=== PATIENT | female | born 1940 | race Caucasian/White ===

== ENCOUNTER 2025-07-30 03:57 | Emergency (ER) | payer MEDICARE, BC ==
[~2025-07-30] VITALS: Ht 162.6 cm; Wt 86.4 kg
[~2025-07-30 03:57] MED LIST: ASCO500C18 PO; ATOR40TA71 PO; BEETROOT PO; ERGO125018 PO; KRIL1CAP6 PO; LEVO75TA PO; METO-539 PO; METO50TA16 PO; RIVA20TA PO; VITA150T PO; VITA600C3 PO
[2025-07-30 04:01] VITALS: TEMP 98.6
--- NOTE | 2025-07-30 04:22 | Physician Documentation ---
History of Present Illness General Chief Complaint: Constipation Stated Complaint: CONSTIPATION Time Seen by MD: 04:21 Mode of Arrival: EMS, Stretcher History of Present Illness Initial Comments 84-YEAR-OLD FEMALE WITH A HISTORY OF AFIB and history of CVA in the past complains of constipation. Patient states she has not had a bowel movements since leaving rehab five days ago. Patient complains of some slight bloating. Patient denies any fevers or chills. Patient states she took a oral laxative with no improvement. Medication Reconciliation Allergies: Coded Allergies: codeine (Unverified Allergy, Unknown, 07/30/25) hydrocodone (Unverified Allergy, Unknown, 07/30/25) Scheduled Ascorbic Acid (Vitamin C), 1 CAP PO DAILY, (Reported) Atorvastatin Calcium (Atorvastatin Calcium), 1 TABLET PO DAILY, (Reported) Ergocalciferol (Vitamin D2) (Vitamin D2), 1 CAP PO Q7D, (Reported) Levothyroxine Sodium* (Synthroid*), 1 TAB PO DAILY, (Reported) Metoprolol Succinate* (Toprol Xl*), 1 TAB PO DAILY, (Reported) Metoprolol Tartrate (Metoprolol Tartrate), 1 TAB PO BID, (Reported) Rivaroxaban (Xarelto), 1 TAB PO DAILY, (Reported) Vitamin B Complex & Vit C No.4 (Super B Complex), 1 TAB PO DAILY, (Reported) [Beetroot], 1,000 MG PO DAILY, (Reported) Miscellaneous Medications Krill/Om3/Dha/Epa/Om6/Lip/Astx (Krill Oil 1,500 Mg Softgel), 1 EACH PO, (Reported) Vitamin E Acetate (Vitamin E), 600 UNIT PO, (Reported) Past Medical History Smoking: Non-Smoker Alcohol Use: None Drug Use: none Review of Systems All Other Systems at this time: Reviewed and Negative Physical Exam Physical Exam Vital Signs: Temperature: 98.6, Source: Oral, Heart Rate: 75, Respiratory Rate: 16, BP: 157/81, Pulse Oximetry: 96, Weight: 86.400 Oxygen Flow Rate: 0 Physical Exam VITALS: Reviewed and as above. GENERAL: Alert, no apparent distress. HEENT: Normocephalic, atraumatic, PERRL, EOMI, dry mucosa, no erythema RESPIRATORY: Lungs clear, normal breath sounds, no respiratory distress. CHEST: No accessory muscle use, no retractions CV: Irregularly irregular, rhythm, no edema, no murmur, No: JVD GI: Soft, slight distention, bowels sounds present, no rebound, guarding, or rigidity BACK: No CVA tenderness, or swelling MUSCULOSKELETAL: No deformities, no edema SKIN: Warm and dry, no rash NEURO: Oriented x4, No motor or sensory deficit PSYCH: Normal mood and affect, no agitation Progress Results/Orders Results/Orders Orders - YONY GARCIA MD Enema (07/30/25 ) Vital Signs 07/30/25 07/30/25 07/30/25 07/30/25 04:01 04:04 04:08 05:40 Temp 98.6 Pulse 56 75 72 Resp 16 16 16 16 B/P (MAP) 117/90 157/81 (106) 149/81 (103) Pulse Ox 96 96 95 O2 Flow Rate 0 0 0 07/30/25 06:09 Pulse 76 Resp 16 B/P (MAP) 152/72 Pulse Ox 96 Medical Decision Making Additional information obtaine: old records Findings The patient with five days of constipation the patient is otherwise well- appearing, the patient's vital signs are stable the patient was given an enema here with good results the patient will be discharged. Her hospitalizations have been reviewed, the patient's previous hospitalizations were reviewed. The patient's pulse oximetry was interpreted as normal and adequate and the patient has been advised to follow up as an outpatient Differential Diagnosis Colitis constipation obstipation bowel obstruction Departure Time of Disposition: 05:34 Disposition: 01 HOME / SELF CARE / HOMELESS Impression: Primary Impression: Constipation Qualified Codes: K59.00 - Constipation, unspecified Discharge Instructions: Constipation, Adult Referrals: NO PRIMARY CARE PROVIDER (PCP) Signature Scribe Signature: no scribe Attestation: The note accurately reflects work and decisions made by me.Yony Garcia MD 08/01/25 07:25 YONY GARCIA MD Jul 30, 2025 04:22
[2025-07-30 06:09] VITALS: BP 152/72; PULSE 76; RESP 16; O2SAT 96
== END 2025-07-30 06:09 | disposition home or self-care (01) ==
LOC: ER 03:58
DX: K59.00 Constipation, unspecified (principal); I48.91 Unspecified atrial fibrillation; Z88.5 Allergy status to narcotic agent; Z86.73 Personal history of transient ischemic attack (TIA), and cerebral infarction without residual deficits; Z79.899 Other long term (current) drug therapy
CPT/HCPCS: 99284